=== PATIENT | female | born 1980 | race Caucasian/White ===

== ENCOUNTER 2018-02-07 08:15 | Outpatient (RCR) | payer OTHER, MEDICAID, SELFPAY ==
--- NOTE | 2018-01-16 09:00 | PT.OIE ---
Current Diagnoses Other specified joint disorders, left knee (01/15/18) Provider Visit Care Team Role Provider Type Elver Kwong PA-C Primary Care Provider Advanced Ornament Setter Specialty: Medical Address: [address] [place] [address], [id number] Email: [email or web address] [email or web address] Merino MD Attending Provider Physician Specialty: Orthopedic Surgery Address: [address] [place] [address], [id number] Email: [email or web address] Physical Therapy Initial Evaluation PT-OP-A Visit Information Start: 01/15/18 14:26 Freq: Status: Active Protocol: Document 01/15/18 14:27 EA (Rec: 01/15/18 14:28 EA [id number]) Out-Patient Physical Therapy Visit Information Visit Information Visit Type Initial Evaluation Visit Start Time 08:15 Visit Stop Time 09:00 Total Visit Minutes 45 Visit Number 1 Evaluation Information Evaluation Date 01/15/18 PT-OP-B Current Condition Start: 01/15/18 14:26 Freq: Status: Active Protocol: Document 01/15/18 17:00 EA (Rec: 01/16/18 07:35 EA [id number]) Current Condition History of Current Condition Onset Date 2007 Current Complaints Right shoulder weakness and pain, left knee pain History of Current Condition Patient have active complaints : 1. 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 Pt not identified for any imaging performed in the past years. 2. L localized knee pain: Pt reports history of left MCL in high school and recovered; states 6-7 years ago knee pain re-appears again. Pt reports her physician did not believed the recent result on knee MRI which negative for meniscus injury. Prior Treatments and Tests Cortisone shot to shoulder. Future Testing and Treatments Planned None at this time. Treatment Goals Patient/Caregiver Goals Patient want to reduce or eliminate pain to right shoulder and knee so she could perform work tasks without limitation . Prior Functional Status Baseline Function- ADL's Independent Baseline Function- Mobility Independent Current Functional Impairments (Reported) Functional Limitations- ADL's Indep with mininmal limitation on overhead movement Functional Limitations- Mobility/Gait Indep with difficulty on all high impact mobility. Functional Limitations- Work/School Currently laid off Functional Limitations- Recreation/ Unable to perform high impact Hobbies activities due to knee limitation Personal Factors Other Personal Factors That May Effect Chronicity of the condition. Therapy/Recovery PT-OP-C Subjective Start: 01/15/18 14:26 Freq: Status: Active Protocol: Document 01/15/18 17:10 EA (Rec: 01/16/18 08:38 EA [id number]) OP-PT Subjective Patient Comments Patient Comments Pt c/o diffuse right shoulder pain rated 4/10 and left knee localized pain rated 6/10. Patient Reported Progress Same Patient Questionnaires Lower Extremity Functional Scale LEFS Score 57 LEFS Impairment 20 to 39% Impaired (Score 48- 62) Quick Dash- Upper Extremity Quick Dash UE Score 23 Quick Dash UE Impairment 20 to 39% Impaired (Score 20- 39) PT-OP-E Functional Tests Start: 01/15/18 14:26 Freq: Status: Active Protocol: Document 01/15/18 17:10 EA (Rec: 01/16/18 08:38 EA [id number]) Functional Tests Apley's Scratch Test Action 1: The subject is instructed to touch the opposite shoulder with his/her hand. This motion checks Glenohumeral adduction, internal rotation , horizontal adduction and scapular protraction Action 2: The subject is instructed to place his/her arm overhead and reach behind the neck to touch his/her upper back. This motion checks Glenohumeral abduction, external rotation and scapular upward rotation and elevation. Action 3: The subject puts his/her hand on the lower back and reaches upward as far as possible. This motion checks glenohumeral adduction, internal rotation and scapular retraction with downward rotation Action 3- Left T8 Action 3- Right T4 Squat Test Comments Single leg squat: Unable to left LE due to instability and weakness/pain PT-OP-G Mobility & Gait Start: 01/15/18 14:26 Freq: Status: Active Protocol: Document 01/15/18 17:10 EA (Rec: 01/16/18 08:38 EA [id number]) OP Mobility Evaluation Functional Movements Lifting and Carrying Limited left shoulder function lifting and carrying Squats Indep with no difficulty Running Assessment Unable at this time. PT-OP-J Posture/Palpation/Skin Start: 01/15/18 14:26 Freq: Status: Active Protocol: Document 01/15/18 17:10 EA (Rec: 01/16/18 08:38 EA [id number]) Posture Evaluation Position Standing Shoulder Posture Neutral Hip Posture (L) Neutral Patellar Posture (L) Laterally Tilted Foot Arch (L) Medium Arch (R) Medium Arch Palpation Assessment Location Two Palpation Location Left medial knee side, Left patella Palpation Findings Tenderness Palpation Details Grade 2; provocation of suprascapular nerve. One Palpation Location Right shoulder: postero lateral, scapular border Palpation Findings Soft Tissue Tightness Tenderness Trigger Point Palpation Details Grade 2 PT-OP-K Range of Motion Start: 01/15/18 14:26 Freq: Status: Active Protocol: Document 01/15/18 17:10 EA (Rec: 01/16/18 08:38 EA [id number]) Shoulder Goniometric Range of Motion Shoulder Measured in Degrees Right Shoulder ROM WFL Yes Knee Goniometric Range of Motion Knee Measured in Degrees Left Knee ROM WFL Yes PT-OP-L Special Tests Start: 01/15/18 14:26 Freq: Status: Active Protocol: Document 01/15/18 17:26 EA (Rec: 01/15/18 17:38 EA [id number]) Special Tests Shoulder Special Tests Speed's Biceps Test Results Negative Valerio Pratik Impingement Test Results negative Empty Can Test Results Neg Belly Press Test Results Neg Knee Special Tests Sal's Test Results - Valgus- 0 Degrees Test Results + Pascual's Sign Test Results + Valgus- 25 Degrees Test Results + Arnoldo Test Test Results Positive Apley's Compression Test Results Positive Comments Medial meniscus Patellar Grind Test Test Results Positive Other Special Tests Special Tests Positive with suprascapular nerve provocation test PT-OP-M Strength Start: 01/15/18 14:26 Freq: Status: Active Protocol: Document 01/15/18 17:26 EA (Rec: 01/15/18 17:38 EA [id number]) Shoulder Strength Shoulder Manual Muscle Testing Right Flexion 4- Good- Extension 4 Good Abduction (C5) 4- Good- Adduction 5 Normal External Rotation 4- Good- Internal Rotation 4 Good Horizontal Abduction 4- Good- Horizontal Adduction 4 Good Elbow/Forearm Strength Elbow and Forearm Manual Muscle Testing Right Flexion (C6) 5 Normal Extension (C7) 5 Normal Pronation 5 Normal Supination 5 Normal Knee Strength Knee Manual Muscle Testing Left Flexion (S2) 4+ Good+ Extension (L3) 4+ Good+ PT-OP-Q Treatments Start: 01/15/18 14:26 Freq: Status: Active Protocol: Document 01/15/18 17:26 EA (Rec: 01/15/18 17:38 EA [id number]) Self-Care/Home Management Treatment Education Patient Education Home Exercise Program Joint Protection Pain Management Posture PT-OP-T Assessment and Plan Start: 01/15/18 14:26 Freq: Status: Active Protocol: Document 01/15/18 17:26 EA (Rec: 01/15/18 17:38 EA [id number]) Physical Therapy Assessment Rehab Potential Rehabilitation Potential Good Evaluation Complexity Number of Personal Factors/Comorbidities 1-2 Number of Body Systems Impaired 3 Clinical Presentation at Evaluation Evolving Impairments Impairments Pain Strength Goals Three Impairment Right shoulder ABD/Flexion/ER decreased MM strength. Performing Artist Goal (LTG) Patient will exhibit right shoulder MMT score of at least 4+/5 to ABD/Flexion/ER LTG Duration 4/5 Two Impairment LEFS impairment score of 57/80 Correction Goal (LTG) Patient will have LEFS impaiment score of 70/80 LTG Duration 4 wks One Impairment Quick Dash impairment score of 24 Performing Artist Goal (LTG) Patient will have Quick Dash impairment score of 10 LTG Duration 4 wks Assessment Summary Assessment Patient is a 37 y/o F who demonstrates difficulty with right shoulder overhead movement and left knee instability due to pain and weakness. Right shoulder special tests reveals negative with rotator cuff injury/ condition, however provocation with suprascapular nerve reveals positive with instability of scapula. Weakness is evident with shoulder ER/ABD and some FWD flexion. Left knee special tests reveals sensitive with Medial collateral ligament, medial meniscus, and patello femoral joint OA/condition. Due to above physiological impairment, patient unable to perform tasks appropriate for her age. Patient will benefit with skilled PT to address the aforementioned deficits and likely will reach functional goals prior to discharge. Physical Therapy Plan Frequency and Duration Frequency of Treatment 2x/Week Plan of Care Start Date 01/15/18 Plan of Care End Date 03/12/18 Therapeutic Interventions Therapeutic Interventions Home Exercise Program Joint Mobilizations Manual Therapy Patient/Caregiver Education Self-Care/Home Management Soft Tissue Mobilization Taping Therapeutic Exercises Modalities Cold Pack/Ice Massage Electric Stimulation Hot Packs Ultrasound Next Visit Focus/Plan Next Note Type Treatment Note Next Visit Plan provide HEP
--- NOTE | 2018-01-17 09:39 | PT.OTN ---
Current Diagnoses Other specified joint disorders, left knee (01/17/18) Physical Therapy Treatment Note PT-OP-A Visit Information Start: 01/15/18 14:26 Freq: Status: Active Protocol: Document 01/17/18 08:20 EA (Rec: 01/17/18 09:01 EA [id number]) Out-Patient Physical Therapy Visit Information Visit Information Visit Type Treatment Note Visit Start Time 08:15 Visit Stop Time 09:00 Total Visit Minutes 55 Visit Number 2 PT-OP-B Current Condition Start: 01/15/18 14:26 Freq: Status: Active Protocol: Document 01/15/18 17:00 EA (Rec: 01/16/18 07:35 EA [id number]) Current Condition History of Current Condition Onset Date 2007 Current Complaints Right shoulder weakness and pain, left knee pain History of Current Condition Patient have active complaints : 1. 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 Pt not identified for any imaging performed in the past years. 2. L localized knee pain: Pt reports history of left MCL in highschool and recovered; states 6-7 years ago knee pain re-appears again. Pt reports her physician did not believed the recent result on knee MRI which negative for meniscus injury. Prior Treatments and Tests Cortisone shot to shoulder. Future Testing and Treatments Planned None at this time. Treatment Goals Patient/Caregiver Goals Patient want to reduce or elimant pain to right shoulder and knee so she could perform work tasks without limitation . Prior Functional Status Baseline Function- ADL's Independent Baseline Function- Mobility Independent Current Functional Impairments (Reported) Functional Limitations- ADL's Indep with mininmal limitation on overehad movement Functional Limitations- Mobility/Gait Indep with difficulty on all high impact mobility. Functional Limitations- Work/School Currently laid off Functional Limitations- Recreation/ Unable to perform high impact Hobbies activities due to knee limitation Personal Factors Other Personal Factors That May Effect Chronicity of the condition. Therapy/Recovery PT-OP-C Subjective Start: 01/15/18 14:26 Freq: Status: Active Protocol: Document 01/17/18 08:20 EA (Rec: 01/17/18 09:01 EA [id number]) OP-PT Subjective Patient Comments Patient Comments Pt reports went for 3 miles run and legs are both sores today; denies left knee aggravation Patient Reported Progress Improving PT-OP-E Functional Tests Start: 01/15/18 14:26 Freq: Status: Active Protocol: Document 01/15/18 17:10 EA (Rec: 01/16/18 08:38 EA [id number]) Functional Tests Apley's Scratch Test Action 1: The subject is instructed to touch the opposite shoulder with his/her hand. This motion checks Glenohumeral adduction, internal rotation , horizontal adduction and scapular protraction Action 2: The subject is instructed to place his/her arm overhead and reach behind the neck to touch his/her upper back. This motion checks Glenohumeral abduction, external rotation and scapular upward rotation and elevation. Action 3: The subject puts his/her hand on the lower back and reaches upward as far as possible. This motion checks glenohumeral adduction, internal rotation and scapular retraction with downward rotation Action 3- Left T8 Action 3- Right T4 Squat Test Comments Single leg squat: Unable to left LE due to instability and weakness/pain PT-OP-G Mobility & Gait Start: 01/15/18 14:26 Freq: Status: Active Protocol: Document 01/15/18 17:10 EA (Rec: 01/16/18 08:38 EA [id number]) OP Mobility Evaluation Functional Movements Lifting and Carrying Limited left shoulder function lifting and carrying Squats Indep with no difficulty Running Assessment Unable at this time. PT-OP-J Posture/Palpation/Skin Start: 01/15/18 14:26 Freq: Status: Active Protocol: Document 01/15/18 17:10 EA (Rec: 01/16/18 08:38 EA [id number]) Posture Evaluation Position Standing Shoulder Posture Neutral Hip Posture (L) Neutral Patellar Posture (L) Laterally Tilted Foot Arch (L) Medium Arch (R) Medium Arch Palpation Assessment Location Two Palpation Location Left medial knee side, Left patella Palpation Findings Tenderness Palpation Details Grade 2; provocation of suprascapular nerve. One Palpation Location Right shoulder: postero lateral, scapular border Palpation Findings Soft Tissue Tightness Tenderness Trigger Point Palpation Details Grade 2 PT-OP-K Range of Motion Start: 08/07/18 14:26 Freq: Status: Active Protocol: Document 01/15/18 17:10 EA (Rec: 01/16/18 08:38 EA [id number]) Shoulder Goniometric Range of Motion Shoulder Measured in Degrees Right Shoulder ROM WFL Yes Knee Goniometric Range of Motion Knee Measured in Degrees Left Knee ROM WFL Yes PT-OP-L Special Tests Start: 01/15/18 14:26 Freq: Status: Active Protocol: Document 01/15/18 17:26 EA (Rec: 01/15/18 17:38 EA [id number]) Special Tests Shoulder Special Tests Speed's Biceps Test Results Negative Valerio Pratik Impingement Test Results negative Empty Can Test Results Neg Belly Press Test Results Neg Knee Special Tests Sal's Test Results - Valgus- 0 Degrees Test Results + Pascual's Sign Test Results + Valgus- 25 Degrees Test Results + Arnoldo Test Test Results Positive Apley's Compression Test Results Positive Comments Medial meniscus Patellar Grind Test Test Results Positive Other Special Tests Special Tests Positive with suprascapular nerve provocation test PT-OP-M Strength Start: 01/15/18 14:26 Freq: Status: Active Protocol: Document 01/15/18 17:26 EA (Rec: 01/15/18 17:38 EA [id number]) Shoulder Strength Shoulder Manual Muscle Testing Right Flexion 4- Good- Extension 4 Good Abduction (C5) 4- Good- Adduction 5 Normal External Rotation 4- Good- Internal Rotation 4 Good Horizontal Abduction 4- Good- Horizontal Adduction 4 Good Elbow/Forearm Strength Elbow and Forearm Manual Muscle Testing Right Flexion (C6) 5 Normal Extension (C7) 5 Normal Pronation 5 Normal Supination 5 Normal Knee Strength Knee Manual Muscle Testing Left Flexion (S2) 4+ Good+ Extension (L3) 4+ Good+ PT-OP-Q Treatments Start: 01/15/18 14:26 Freq: Status: Active Protocol: Document 01/17/18 08:20 EA (Rec: 01/17/18 09:01 EA [id number]) Cardio Equipment Bicycle (Upright) Duration (Minutes) 5 Resistance 4 Seat Position 4 Gym Equipment Cable Column (Body Solid) Leg Extension Resistance 20# Reps/Time 15 x 2sets Rows Resistance 20-30 Reps/Time x15 reps x 2 Therapeutic Exercises Standing Exercises 1 Standing Exercise Name Wall squat: shoulder- press, side raises, front raises Side bilateral Reps/Minutes x 15 reps Manual Therapy Treatment Soft Tissue Mobilization 1 Body Location rith scapular borders Mobilization Type Myofascial Release Sustained Pressure Trigger Point Release Intensity/Depth Moderate Body Position Prone PT-OP-R Modalities Start: 01/15/18 14:26 Freq: Status: Active Protocol: Document 01/17/18 08:20 EA (Rec: 01/17/18 09:01 EA [id number]) Electric Stimulation Electric Stimulation Interferential Current (IFC) Body Location right post shoulder and scapula Intensity 15 Combined With Heat/Cold Hot Pack PT-OP-T Assessment and Plan Start: 01/15/18 14:26 Freq: Status: Active Protocol: Document 01/17/18 08:20 EA (Rec: 01/17/18 09:01 EA [id number]) Physical Therapy Assessment Assessment Summary Assessment Tolerated treatment well: requires cues during shoulder exercises. Physical Therapy Plan Next Visit Focus/Plan Next Note Type Treatment Note Next Visit Plan Cont with current plan
--- NOTE | 2018-01-22 13:19 | PT.OTN ---
Current Diagnoses Other specified joint disorders, left knee (01/22/18) Physical Therapy Treatment Note PT-OP-A Visit Information Start: 01/15/18 14:26 Freq: Status: Active Protocol: Document 01/22/18 08:24 EA (Rec: 01/22/18 09:00 EA [id number]) Out-Patient Physical Therapy Visit Information Visit Information Visit Type Treatment Note Visit Start Time 08:15 Visit Stop Time 09:00 Total Visit Minutes 55 Visit Number 3 PT-OP-B Current Condition Start: 01/15/18 14:26 Freq: Status: Active Protocol: Document 01/15/18 17:00 EA (Rec: 01/16/18 07:35 EA [id number]) Current Condition History of Current Condition Onset Date 2007 Current Complaints Right shoulder weakness and pain, left knee pain History of Current Condition Patient have active complaints : 1. 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 Pt not identified for any imaging performed in the past years. 2. L localized knee pain: Pt reports history of left MCL in highschool and recovered; states 6-7 years ago knee pain re-appears again. Pt reports her physician did not believed the recent result on knee MRI which negative for meniscus injury. Prior Treatments and Tests Cortisone shot to shoulder. Future Testing and Treatments Planned None at this time. Treatment Goals Patient/Caregiver Goals Patient want to reduce or elimant pain to right shoulder and knee so she could perform work tasks without limitation . Prior Functional Status Baseline Function- ADL's Independent Baseline Function- Mobility Independent Current Functional Impairments (Reported) Functional Limitations- ADL's Indep with mininmal limitation on overehad movement Functional Limitations- Mobility/Gait Indep with difficulty on all high impact mobility. Functional Limitations- Work/School Currently laid off Functional Limitations- Recreation/ Unable to perform high impact Hobbies activities due to knee limitation Personal Factors Other Personal Factors That May Effect Chronicity of the condition. Therapy/Recovery PT-OP-C Subjective Start: 01/15/18 14:26 Freq: Status: Active Protocol: Document 01/22/18 08:24 EA (Rec: 01/22/18 09:00 EA [id number]) OP-PT Subjective Patient Comments Patient Comments Pt reports quite sore today after running 16 miles last week. reports no increased in knee symptom PT-OP-E Functional Tests Start: 01/15/18 14:26 Freq: Status: Active Protocol: Document 01/15/18 17:10 EA (Rec: 01/16/18 08:38 EA [id number]) Functional Tests Apley's Scratch Test Action 1: The subject is instructed to touch the opposite shoulder with his/her hand. This motion checks Glenohumeral adduction, internal rotation , horizontal adduction and scapular protraction Action 2: The subject is instructed to place his/her arm overhead and reach behind the neck to touch his/her upper back. This motion checks Glenohumeral abduction, external rotation and scapular upward rotation and elevation. Action 3: The subject puts his/her hand on the lower back and reaches upward as far as possible. This motion checks glenohumeral adduction, internal rotation and scapular retraction with downward rotation Action 3- Left T8 Action 3- Right T4 Squat Test Comments Single leg squat: Unable to left LE due to instability and weakness/pain PT-OP-G Mobility & Gait Start: 01/15/18 14:26 Freq: Status: Active Protocol: Document 01/15/18 17:10 EA (Rec: 01/16/18 08:38 EA [id number]) OP Mobility Evaluation Functional Movements Lifting and Carrying Limited left shoulder function lifting and carrying Squats Indep with no difficulty Running Assessment Unable at this time. PT-OP-J Posture/Palpation/Skin Start: 01/15/18 14:26 Freq: Status: Active Protocol: Document 01/15/18 17:10 EA (Rec: 01/16/18 08:38 EA [id number]) Posture Evaluation Position Standing Shoulder Posture Neutral Hip Posture (L) Neutral Patellar Posture (L) Laterally Tilted Foot Arch (L) Medium Arch (R) Medium Arch Palpation Assessment Location Two Palpation Location Left medial knee side, Left patella Palpation Findings Tenderness Palpation Details Grade 2; provocation of suprascapular nerve. One Palpation Location Right shoulder: postero lateral, scapular border Palpation Findings Soft Tissue Tightness Tenderness Trigger Point Palpation Details Grade 2 PT-OP-K Range of Motion Start: 01/15/18 14:26 Freq: Status: Active Protocol: Document 01/15/18 17:10 EA (Rec: 01/16/18 08:38 EA [id number]) Shoulder Goniometric Range of Motion Shoulder Measured in Degrees Right Shoulder ROM WFL Yes Knee Goniometric Range of Motion Knee Measured in Degrees Left Knee ROM WFL Yes PT-OP-L Special Tests Start: 01/15/18 14:26 Freq: Status: Active Protocol: Document 01/15/18 17:26 EA (Rec: 01/15/18 17:38 EA [id number]) Special Tests Shoulder Special Tests Speed's Biceps Test Results Negative Valerio Pratik Impingement Test Results negative Empty Can Test Results Neg Belly Press Test Results Neg Knee Special Tests Sal's Test Results - Valgus- 0 Degrees Test Results + Pascual's Sign Test Results + Valgus- 25 Degrees Test Results + Arnoldo Test Test Results Positive Apley's Compression Test Results Positive Comments Medial meniscus Patellar Grind Test Test Results Positive Other Special Tests Special Tests Positive with suprascapular nerve provocation test PT-OP-M Strength Start: 01/15/18 14:26 Freq: Status: Active Protocol: Document 01/15/18 17:26 EA (Rec: 01/15/18 17:38 EA [id number]) Shoulder Strength Shoulder Manual Muscle Testing Right Flexion 4- Good- Extension 4 Good Abduction (C5) 4- Good- Adduction 5 Normal External Rotation 4- Good- Internal Rotation 4 Good Horizontal Abduction 4- Good- Horizontal Adduction 4 Good Elbow/Forearm Strength Elbow and Forearm Manual Muscle Testing Right Flexion (C6) 5 Normal Extension (C7) 5 Normal Pronation 5 Normal Supination 5 Normal Knee Strength Knee Manual Muscle Testing Left Flexion (S2) 4+ Good+ Extension (L3) 4+ Good+ PT-OP-Q Treatments Start: 01/15/18 14:26 Freq: Status: Active Protocol: Document 01/22/18 08:24 EA (Rec: 01/22/18 09:00 EA [id number]) Cardio Equipment Elliptical Duration (Minutes) 7 Resistance 4 Gym Equipment Shuttle Recovery Unilateral Squats Resistance 3 cords Shuttle Recovery Platform Stable Reps/Time 15 reps x 2 Therapeutic Exercises Standing Exercises 2 Standing Exercise Name Steady lunges: shoulder front raise, side raise, press Resistance 2-5 lbs Reps/Minutes x 8 reps each side of the leg 1 Standing Exercise Name Squat: shoulder- press, side raises, front raises Side bilateral Reps/Minutes x 15 reps PT-OP-R Modalities Start: 01/15/18 14:26 Freq: Status: Active Protocol: Document 01/22/18 08:24 EA (Rec: 01/22/18 09:00 EA [id number]) Electric Stimulation Electric Stimulation Interferential Current (IFC) Body Location right post shoulder and scapula Intensity 15 Combined With Heat/Cold Hot Pack Hot Pack/Cold Pack Treatment Cold Pack Location left knee Patient Position Prone PT-OP-T Assessment and Plan Start: 01/15/18 14:26 Freq: Status: Active Protocol: Document 01/22/18 08:24 EA (Rec: 01/22/18 09:00 EA [id number]) Physical Therapy Assessment Assessment Summary Assessment Tolerated treatment; patient requires cues during lunges. Physical Therapy Plan Next Visit Focus/Plan Next Note Type Treatment Note Next Visit Plan Cont with current plan
--- NOTE | 2018-01-24 09:47 | PT.OTN ---
Current Diagnoses Other specified joint disorders, left knee (01/24/18) Physical Therapy Treatment Note PT-OP-A Visit Information Start: 01/15/18 14:26 Freq: Status: Active Protocol: Document 01/24/18 07:35 EA (Rec: 01/24/18 08:20 EA [id number]) Out-Patient Physical Therapy Visit Information Visit Information Visit Type Treatment Note Visit Start Time 07:30 Visit Stop Time 08:15 Total Visit Minutes 55 Visit Number 4 PT-OP-B Current Condition Start: 01/15/18 14:26 Freq: Status: Active Protocol: Document 01/15/18 17:00 EA (Rec: 01/16/18 07:35 EA [id number]) Current Condition History of Current Condition Onset Date 2007 Current Complaints Right shoulder weakness and pain, left knee pain History of Current Condition Patient have active complaints : 1. 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 Pt not identified for any imaging performed in the past years. 2. L localized knee pain: Pt reports history of left MCL in highschool and recovered; states 6-7 years ago knee pain re-appears again. Pt reports her physician did not believed the recent result on knee MRI which negative for meniscus injury. Prior Treatments and Tests Cortisone shot to shoulder. Future Testing and Treatments Planned None at this time. Treatment Goals Patient/Caregiver Goals Patient want to reduce or elimant pain to right shoulder and knee so she could perform work tasks without limitation . Prior Functional Status Baseline Function- ADL's Independent Baseline Function- Mobility Independent Current Functional Impairments (Reported) Functional Limitations- ADL's Indep with mininmal limitation on overehad movement Functional Limitations- Mobility/Gait Indep with difficulty on all high impact mobility. Functional Limitations- Work/School Currently laid off Functional Limitations- Recreation/ Unable to perform high impact Hobbies activities due to knee limitation Personal Factors Other Personal Factors That May Effect Chronicity of the condition. Therapy/Recovery PT-OP-C Subjective Start: 01/15/18 14:26 Freq: Status: Active Protocol: Document 01/24/18 07:35 EA (Rec: 01/24/18 08:20 EA [id number]) OP-PT Subjective Patient Comments Patient Comments Pt reports a bit sore today but okay; states she uses cool spray to knee and shoulder and feels good. PT-OP-E Functional Tests Start: 01/15/18 14:26 Freq: Status: Active Protocol: Document 01/15/18 17:10 EA (Rec: 01/16/18 08:38 EA [id number]) Functional Tests Apley's Scratch Test Action 1: The subject is instructed to touch the opposite shoulder with his/her hand. This motion checks Glenohumeral adduction, internal rotation , horizontal adduction and scapular protraction Action 2: The subject is instructed to place his/her arm overhead and reach behind the neck to touch his/her upper back. This motion checks Glenohumeral abduction, external rotation and scapular upward rotation and elevation. Action 3: The subject puts his/her hand on the lower back and reaches upward as far as possible. This motion checks glenohumeral adduction, internal rotation and scapular retraction with downward rotation Action 3- Left T8 Action 3- Right T4 Squat Test Comments Single leg squat: Unable to left LE due to instability and weakness/pain PT-OP-G Mobility & Gait Start: 01/15/18 14:26 Freq: Status: Active Protocol: Document 01/15/18 17:10 EA (Rec: 01/16/18 08:38 EA [id number]) OP Mobility Evaluation Functional Movements Lifting and Carrying Limited left shoulder function lifting and carrying Squats Indep with no difficulty Running Assessment Unable at this time. PT-OP-J Posture/Palpation/Skin Start: 01/15/18 14:26 Freq: Status: Active Protocol: Document 01/15/18 17:10 EA (Rec: 01/16/18 08:38 EA [id number]) Posture Evaluation Position Standing Shoulder Posture Neutral Hip Posture (L) Neutral Patellar Posture (L) Laterally Tilted Foot Arch (L) Medium Arch (R) Medium Arch Palpation Assessment Location Two Palpation Location Left medial knee side, Left patella Palpation Findings Tenderness Palpation Details Grade 2; provocation of suprascapular nerve. One Palpation Location Right shoulder: postero lateral, scapular border Palpation Findings Soft Tissue Tightness Tenderness Trigger Point Palpation Details Grade 2 PT-OP-K Range of Motion Start: 08/07/18 14:26 Freq: Status: Active Protocol: Document 01/15/18 17:10 EA (Rec: 01/16/18 08:38 EA [id number]) Shoulder Goniometric Range of Motion Shoulder Measured in Degrees Right Shoulder ROM WFL Yes Knee Goniometric Range of Motion Knee Measured in Degrees Left Knee ROM WFL Yes PT-OP-L Special Tests Start: 01/15/18 14:26 Freq: Status: Active Protocol: Document 01/15/18 17:26 EA (Rec: 01/15/18 17:38 EA [id number]) Special Tests Shoulder Special Tests Speed's Biceps Test Results Negative Valerio Pratik Impingement Test Results negative Empty Can Test Results Neg Belly Press Test Results Neg Knee Special Tests Sal's Test Results - Valgus- 0 Degrees Test Results + Pascual's Sign Test Results + Valgus- 25 Degrees Test Results + Arnoldo Test Test Results Positive Apley's Compression Test Results Positive Comments Medial meniscus Patellar Grind Test Test Results Positive Other Special Tests Special Tests Positive with suprascapular nerve provocation test PT-OP-M Strength Start: 01/15/18 14:26 Freq: Status: Active Protocol: Document 01/15/18 17:26 EA (Rec: 01/15/18 17:38 EA [id number]) Shoulder Strength Shoulder Manual Muscle Testing Right Flexion 4- Good- Extension 4 Good Abduction (C5) 4- Good- Adduction 5 Normal External Rotation 4- Good- Internal Rotation 4 Good Horizontal Abduction 4- Good- Horizontal Adduction 4 Good Elbow/Forearm Strength Elbow and Forearm Manual Muscle Testing Right Flexion (C6) 5 Normal Extension (C7) 5 Normal Pronation 5 Normal Supination 5 Normal Knee Strength Knee Manual Muscle Testing Left Flexion (S2) 4+ Good+ Extension (L3) 4+ Good+ PT-OP-Q Treatments Start: 01/15/18 14:26 Freq: Status: Active Protocol: Document 01/24/18 07:35 EA (Rec: 01/24/18 08:20 EA [id number]) Cardio Equipment Elliptical Duration (Minutes) 7 Resistance 4-6 Gym Equipment Shuttle Recovery Unilateral Squats Resistance 3 cords Shuttle Recovery Platform Stable Reps/Time 15 reps x 2 Therapeutic Exercises Standing Exercises 3 Standing Exercise Name Cable sit to stand; lunges row Reps/Minutes x 15 reps x 2 sets 2 Standing Exercise Name walking lunges: shoulder front raise, side raise, press Resistance 2-5 lbs Reps/Minutes x 8 reps each side of the leg 1 Standing Exercise Name side stepSquat: shoulder- press, side raises, front raises Side bilateral Reps/Minutes x 15 reps Manual Therapy Treatment Soft Tissue Mobilization 1 Body Location rith scapular borders Mobilization Type Myofascial Release Sustained Pressure Trigger Point Release Intensity/Depth Moderate Body Position Prone PT-OP-R Modalities Start: 01/15/18 14:26 Freq: Status: Active Protocol: Document 01/24/18 07:35 EA (Rec: 01/24/18 08:20 EA [id number]) Electric Stimulation Electric Stimulation Interferential Current (IFC) Body Location right post shoulder and scapula Intensity 15 Combined With Heat/Cold Hot Pack PT-OP-T Assessment and Plan Start: 01/15/18 14:26 Freq: Status: Active Protocol: Document 01/24/18 07:35 EA (Rec: 01/24/18 08:20 EA [id number]) Physical Therapy Assessment Assessment Summary Assessment Patient is progressing very well. Physical Therapy Plan Next Visit Focus/Plan Next Visit Plan Advance as tolerated
--- NOTE | 2018-01-31 10:07 | PT.OTN ---
Current Diagnoses Other specified joint disorders, left knee (01/31/18) Physical Therapy Treatment Note PT-OP-A Visit Information Start: 01/15/18 14:26 Freq: Status: Active Protocol: Document 01/31/18 08:19 EA (Rec: 01/31/18 09:04 EA [id number]) Out-Patient Physical Therapy Visit Information Visit Information Visit Type Treatment Note Visit Start Time 08:15 Visit Stop Time 09:10 Total Visit Minutes 55 Visit Number 5 Evaluation Information Evaluation Date 01/15/18 PT-OP-B Current Condition Start: 01/15/18 14:26 Freq: Status: Active Protocol: Document 01/15/18 17:00 EA (Rec: 01/16/18 07:35 EA [id number]) Current Condition History of Current Condition Onset Date 2007 Current Complaints Right shoulder weakness and pain, left knee pain History of Current Condition Patient have active complaints : 1. 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 Pt not identified for any imaging performed in the past years. 2. L localized knee pain: Pt reports history of left MCL in highschool and recovered; states 6-7 years ago knee pain re-appears again. Pt reports her physician did not believed the recent result on knee MRI which negative for meniscus injury. Prior Treatments and Tests Cortisone shot to shoulder. Future Testing and Treatments Planned None at this time. Treatment Goals Patient/Caregiver Goals Patient want to reduce or elimant pain to right shoulder and knee so she could perform work tasks without limitation . Prior Functional Status Baseline Function- ADL's Independent Baseline Function- Mobility Independent Current Functional Impairments (Reported) Functional Limitations- ADL's Indep with mininmal limitation on overehad movement Functional Limitations- Mobility/Gait Indep with difficulty on all high impact mobility. Functional Limitations- Work/School Currently laid off Functional Limitations- Recreation/ Unable to perform high impact Hobbies activities due to knee limitation Personal Factors Other Personal Factors That May Effect Chronicity of the condition. Therapy/Recovery PT-OP-C Subjective Start: 01/15/18 14:26 Freq: Status: Active Protocol: Document 01/31/18 08:19 EA (Rec: 01/31/18 09:04 EA [id number]) OP-PT Subjective Patient Comments Patient Comments Pt reports unable to come last schedule due to headache; states knees and shoulder are much feeling better. Patient Reported Progress Improving Patient Questionnaires Lower Extremity Functional Scale LEFS Score 57 Quick Dash- Upper Extremity Quick Dash UE Score 23 PT-OP-E Functional Tests Start: 01/15/18 14:26 Freq: Status: Active Protocol: Document 01/15/18 17:10 EA (Rec: 01/16/18 08:38 EA [id number]) Functional Tests Apley's Scratch Test Action 1: The subject is instructed to touch the opposite shoulder with his/her hand. This motion checks Glenohumeral adduction, internal rotation , horizontal adduction and scapular protraction Action 2: The subject is instructed to place his/her arm overhead and reach behind the neck to touch his/her upper back. This motion checks Glenohumeral abduction, external rotation and scapular upward rotation and elevation. Action 3: The subject puts his/her hand on the lower back and reaches upward as far as possible. This motion checks glenohumeral adduction, internal rotation and scapular retraction with downward rotation Action 3- Left T8 Action 3- Right T4 Squat Test Comments Single leg squat: Unable to left LE due to instability and weakness/pain PT-OP-G Mobility & Gait Start: 01/15/18 14:26 Freq: Status: Active Protocol: Document 01/15/18 17:10 EA (Rec: 01/16/18 08:38 EA [id number]) OP Mobility Evaluation Functional Movements Lifting and Carrying Limited left shoulder function lifting and carrying Squats Indep with no difficulty Running Assessment Unable at this time. PT-OP-J Posture/Palpation/Skin Start: 01/15/18 14:26 Freq: Status: Active Protocol: Document 01/15/18 17:10 EA (Rec: 01/16/18 08:38 EA [id number]) Posture Evaluation Position Standing Shoulder Posture Neutral Hip Posture (L) Neutral Patellar Posture (L) Laterally Tilted Foot Arch (L) Medium Arch (R) Medium Arch Palpation Assessment Location Two Palpation Location Left medial knee side, Left patella Palpation Findings Tenderness Palpation Details Grade 2; provocation of suprascapular nerve. One Palpation Location Right shoulder: postero lateral, scapular border Palpation Findings Soft Tissue Tightness Tenderness Trigger Point Palpation Details Grade 2 PT-OP-K Range of Motion Start: 01/15/18 14:26 Freq: Status: Active Protocol: Document 01/15/18 17:10 EA (Rec: 01/16/18 08:38 EA [id number]) Shoulder Goniometric Range of Motion Shoulder Measured in Degrees Right Shoulder ROM WFL Yes Knee Goniometric Range of Motion Knee Measured in Degrees Left Knee ROM WFL Yes PT-OP-L Special Tests Start: 01/15/18 14:26 Freq: Status: Active Protocol: Document 01/15/18 17:26 EA (Rec: 01/15/18 17:38 EA [id number]) Special Tests Shoulder Special Tests Speed's Biceps Test Results Negative Valerio Pratik Impingement Test Results negative Empty Can Test Results Neg Belly Press Test Results Neg Knee Special Tests Sal's Test Results - Valgus- 0 Degrees Test Results + Pascual's Sign Test Results + Valgus- 25 Degrees Test Results + Arnoldo Test Test Results Positive Apley's Compression Test Results Positive Comments Medial meniscus Patellar Grind Test Test Results Positive Other Special Tests Special Tests Positive with suprascapular nerve provocation test PT-OP-M Strength Start: 01/15/18 14:26 Freq: Status: Active Protocol: Document 01/15/18 17:26 EA (Rec: 01/15/18 17:38 EA [id number]) Shoulder Strength Shoulder Manual Muscle Testing Right Flexion 4- Good- Extension 4 Good Abduction (C5) 4- Good- Adduction 5 Normal External Rotation 4- Good- Internal Rotation 4 Good Horizontal Abduction 4- Good- Horizontal Adduction 4 Good Elbow/Forearm Strength Elbow and Forearm Manual Muscle Testing Right Flexion (C6) 5 Normal Extension (C7) 5 Normal Pronation 5 Normal Supination 5 Normal Knee Strength Knee Manual Muscle Testing Left Flexion (S2) 4+ Good+ Extension (L3) 4+ Good+ PT-OP-Q Treatments Start: 01/15/18 14:26 Freq: Status: Active Protocol: Document 01/31/18 08:19 EA (Rec: 01/31/18 09:04 EA [id number]) Cardio Equipment Bicycle (Upright) Duration (Minutes) 5 Resistance 4 Seat Position 4 Treadmill Speed 3-7 Other interval x 5 Gym Equipment Cable Column (Body Solid) Leg Extension Resistance 20# Reps/Time 15 x 2sets Rows Resistance 20-30 Reps/Time x15 reps x 2 Shuttle Recovery Unilateral Squats Resistance 3 cords Shuttle Recovery Platform Stable Reps/Time 15 reps x 2 Therapeutic Exercises Standing Exercises 4 Standing Exercise Name BUSO DB side raise, front raise, shoulder press Side right Reps/Minutes 12 x 2sets 3 Standing Exercise Name Cable sit to stand; lunges row Reps/Minutes x 15 reps x 2 sets 2 Standing Exercise Name walking lunges: shoulder front raise, side raise, press Resistance 2-5 lbs Reps/Minutes x 8 reps each side of the leg 1 Standing Exercise Name side stepSquat: shoulder- press, side raises, front raises Side bilateral Reps/Minutes x 15 reps Manual Therapy Treatment Soft Tissue Mobilization 1 Body Location rith scapular borders Mobilization Type Myofascial Release Sustained Pressure Trigger Point Release Intensity/Depth Moderate Body Position Prone Self-Care/Home Management Treatment Education Patient Education Home Exercise Program Joint Protection Pain Management Posture PT-OP-R Modalities Start: 01/15/18 14:26 Freq: Status: Active Protocol: Document 01/31/18 08:19 EA (Rec: 01/31/18 09:04 EA [id number]) Electric Stimulation Electric Stimulation Interferential Current (IFC) Body Location right post shoulder and scapula Intensity 15 Combined With Heat/Cold Hot Pack Hot Pack/Cold Pack Treatment Cold Pack Location left knee Patient Position Prone PT-OP-T Assessment and Plan Start: 01/15/18 14:26 Freq: Status: Active Protocol: Document 01/31/18 08:19 EA (Rec: 01/31/18 09:04 EA [id number]) Physical Therapy Assessment Impairments Impairments Pain Strength Goals Three Impairment Right shoulder ABD/Flexion/ER decreased MM strength. Jail Goal (LTG) Patient will exhibit right shoulder MMT score of at least 4+/5 to ABD/Flexion/ER LTG Duration 4/5 Two Impairment LEFS impairment score of 57/80 Jail Goal (LTG) Patient will have LEFS impaiment score of 70/80 LTG Duration 4 wks One Impairment Quick Dash impairment score of 24 Director Of Dietary Goal (LTG) Patient will have Quick Dash impairment score of 10 LTG Duration 4 wks Assessment Summary Assessment Tolerated exercises well with no signs of discomfort during exercises Physical Therapy Plan Frequency and Duration Frequency of Treatment 2x/Week Plan of Care Start Date 01/15/18 Plan of Care End Date 03/12/18 Therapeutic Interventions Therapeutic Interventions Home Exercise Program Joint Mobilizations Manual Therapy Patient/Caregiver Education Self-Care/Home Management Soft Tissue Mobilization Taping Therapeutic Exercises Modalities Cold Pack/Ice Massage Electric Stimulation Hot Packs Ultrasound Next Visit Focus/Plan Next Visit Plan Advance as tolerated
--- NOTE | 2018-02-05 13:41 | PT.OTN ---
Current Diagnoses Other specified joint disorders, left knee (02/05/18) Physical Therapy Treatment Note PT-OP-A Visit Information Start: 01/15/18 14:26 Freq: Status: Active Protocol: Document 02/05/18 08:57 EA (Rec: 02/05/18 09:02 EA [id number]) Out-Patient Physical Therapy Visit Information Visit Information Visit Type Treatment Note Visit Start Time 08:15 Visit Stop Time 09:10 Total Visit Minutes 55 Visit Number 6 PT-OP-B Current Condition Start: 01/15/18 14:26 Freq: Status: Active Protocol: Document 01/15/18 17:00 EA (Rec: 01/16/18 07:35 EA [id number]) Current Condition History of Current Condition Onset Date 2007 Current Complaints Right shoulder weakness and pain, left knee pain History of Current Condition Patient have active complaints : 1. 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 Pt not identified for any imaging performed in the past years. 2. L localized knee pain: Pt reports history of left MCL in highschool and recovered; states 6-7 years ago knee pain re-appears again. Pt reports her physician did not believed the recent result on knee MRI which negative for meniscus injury. Prior Treatments and Tests Cortisone shot to shoulder. Future Testing and Treatments Planned None at this time. Treatment Goals Patient/Caregiver Goals Patient want to reduce or elimant pain to right shoulder and knee so she could perform work tasks without limitation . Prior Functional Status Baseline Function- ADL's Independent Baseline Function- Mobility Independent Current Functional Impairments (Reported) Functional Limitations- ADL's Indep with mininmal limitation on overehad movement Functional Limitations- Mobility/Gait Indep with difficulty on all high impact mobility. Functional Limitations- Work/School Currently laid off Functional Limitations- Recreation/ Unable to perform high impact Hobbies activities due to knee limitation Personal Factors Other Personal Factors That May Effect Chronicity of the condition. Therapy/Recovery PT-OP-C Subjective Start: 01/15/18 14:26 Freq: Status: Active Protocol: Document 02/05/18 08:57 EA (Rec: 02/05/18 09:02 EA [id number]) OP-PT Subjective Patient Comments Patient Comments Pt reports right shoulder and right knee is quite sore after 5 miles rung yesterday; denies shrp pain or tingling sensation. Patient Reported Progress Improving PT-OP-E Functional Tests Start: 01/15/18 14:26 Freq: Status: Active Protocol: Document 01/15/18 17:10 EA (Rec: 01/16/18 08:38 EA [id number]) Functional Tests Apley's Scratch Test Action 1: The subject is instructed to touch the opposite shoulder with his/her hand. This motion checks Glenohumeral adduction, internal rotation , horizontal adduction and scapular protraction Action 2: The subject is instructed to place his/her arm overhead and reach behind the neck to touch his/her upper back. This motion checks Glenohumeral abduction, external rotation and scapular upward rotation and elevation. Action 3: The subject puts his/her hand on the lower back and reaches upward as far as possible. This motion checks glenohumeral adduction, internal rotation and scapular retraction with downward rotation Action 3- Left T8 Action 3- Right T4 Squat Test Comments Single leg squat: Unable to left LE due to instability and weakness/pain PT-OP-G Mobility & Gait Start: 01/15/18 14:26 Freq: Status: Active Protocol: Document 01/15/18 17:10 EA (Rec: 01/16/18 08:38 EA [id number]) OP Mobility Evaluation Functional Movements Lifting and Carrying Limited left shoulder function lifting and carrying Squats Indep with no difficulty Running Assessment Unable at this time. PT-OP-J Posture/Palpation/Skin Start: 01/15/18 14:26 Freq: Status: Active Protocol: Document 01/15/18 17:10 EA (Rec: 01/16/18 08:38 EA [id number]) Posture Evaluation Position Standing Shoulder Posture Neutral Hip Posture (L) Neutral Patellar Posture (L) Laterally Tilted Foot Arch (L) Medium Arch (R) Medium Arch Palpation Assessment Location Two Palpation Location Left medial knee side, Left patella Palpation Findings Tenderness Palpation Details Grade 2; provocation of suprascapular nerve. One Palpation Location Right shoulder: postero lateral, scapular border Palpation Findings Soft Tissue Tightness Tenderness Trigger Point Palpation Details Grade 2 PT-OP-K Range of Motion Start: 01/15/18 14:26 Freq: Status: Active Protocol: Document 01/15/18 17:10 EA (Rec: 01/16/18 08:38 EA [id number]) Shoulder Goniometric Range of Motion Shoulder Measured in Degrees Right Shoulder ROM WFL Yes Knee Goniometric Range of Motion Knee Measured in Degrees Left Knee ROM WFL Yes PT-OP-L Special Tests Start: 01/15/18 14:26 Freq: Status: Active Protocol: Document 01/15/18 17:26 EA (Rec: 01/15/18 17:38 EA [id number]) Special Tests Shoulder Special Tests Speed's Biceps Test Results Negative Valerio Pratik Impingement Test Results negative Empty Can Test Results Neg Belly Press Test Results Neg Knee Special Tests Sal's Test Results - Valgus- 0 Degrees Test Results + Pascual's Sign Test Results + Valgus- 25 Degrees Test Results + Arnoldo Test Test Results Positive Apley's Compression Test Results Positive Comments Medial meniscus Patellar Grind Test Test Results Positive Other Special Tests Special Tests Positive with suprascapular nerve provocation test PT-OP-M Strength Start: 01/15/18 14:26 Freq: Status: Active Protocol: Document 01/15/18 17:26 EA (Rec: 01/15/18 17:38 EA [id number]) Shoulder Strength Shoulder Manual Muscle Testing Right Flexion 4- Good- Extension 4 Good Abduction (C5) 4- Good- Adduction 5 Normal External Rotation 4- Good- Internal Rotation 4 Good Horizontal Abduction 4- Good- Horizontal Adduction 4 Good Elbow/Forearm Strength Elbow and Forearm Manual Muscle Testing Right Flexion (C6) 5 Normal Extension (C7) 5 Normal Pronation 5 Normal Supination 5 Normal Knee Strength Knee Manual Muscle Testing Left Flexion (S2) 4+ Good+ Extension (L3) 4+ Good+ PT-OP-Q Treatments Start: 01/15/18 14:26 Freq: Status: Active Protocol: Document 02/05/18 08:57 EA (Rec: 02/05/18 09:02 EA [id number]) Cardio Equipment Recumbent Bicycle Duration (Minutes) 7 Resistance 3 Gym Equipment Cable Column (Body Solid) Leg Extension Resistance 20# Reps/Time 15 x 2sets Rows Resistance 20-30 Reps/Time x15 reps x 2 Shuttle Recovery Bilateral Squats Details 6 Shuttle Recovery Platform Stable Reps/Time x 12 reps x 2sets Unilateral Squats Resistance 4 cords Shuttle Recovery Platform Stable Reps/Time 15 reps x 2 Therapeutic Exercises Other Exercises 1 Other Exercise Name dikr squat shoulder press, side raises, and front raises Reps/Minutes x 12 reps x 2 sets Manual Therapy Treatment Soft Tissue Mobilization 1 Body Location right scapular borders Mobilization Type Myofascial Release Sustained Pressure Trigger Point Release Intensity/Depth Moderate Body Position Prone PT-OP-R Modalities Start: 01/15/18 14:26 Freq: Status: Active Protocol: Document 02/05/18 08:57 EA (Rec: 02/05/18 09:02 EA [id number]) Electric Stimulation Electric Stimulation Interferential Current (IFC) Body Location right post shoulder and scapula Intensity 15 Combined With Heat/Cold Hot Pack Hot Pack/Cold Pack Treatment Cold Pack Location left knee Patient Position Prone PT-OP-T Assessment and Plan Start: 01/15/18 14:26 Freq: Status: Active Protocol: Document 02/05/18 08:57 EA (Rec: 02/05/18 09:02 EA [id number]) Physical Therapy Assessment Assessment Summary Assessment Tolerated treatment well; no acute inflammation noted and good form during therapeutic exercises. Patient is progressing well. Physical Therapy Plan Next Visit Focus/Plan Next Visit Plan Advance as tolerated
--- NOTE | 2018-02-07 13:39 | PT.OTN ---
Current Diagnoses Other specified joint disorders, left knee (02/07/18) Physical Therapy Treatment Note PT-OP-A Visit Information Start: 01/15/18 14:26 Freq: Status: Active Protocol: Document 02/07/18 08:26 EA (Rec: 02/07/18 09:02 EA [id number]) Out-Patient Physical Therapy Visit Information Visit Information Visit Type Treatment Note Visit Start Time 08:15 Visit Stop Time 09:10 Total Visit Minutes 55 Visit Number 7 PT-OP-B Current Condition Start: 01/15/18 14:26 Freq: Status: Active Protocol: Document 01/15/18 17:00 EA (Rec: 01/16/18 07:35 EA [id number]) Current Condition History of Current Condition Onset Date 2007 Current Complaints Right shoulder weakness and pain, left knee pain History of Current Condition Patient have active complaints : 1. 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 Pt not identified for any imaging performed in the past years. 2. L localized knee pain: Pt reports history of left MCL in highschool and recovered; states 6-7 years ago knee pain re-appears again. Pt reports her physician did not believed the recent result on knee MRI which negative for meniscus injury. Prior Treatments and Tests Cortisone shot to shoulder. Future Testing and Treatments Planned None at this time. Treatment Goals Patient/Caregiver Goals Patient want to reduce or elimant pain to right shoulder and knee so she could perform work tasks without limitation . Prior Functional Status Baseline Function- ADL's Independent Baseline Function- Mobility Independent Current Functional Impairments (Reported) Functional Limitations- ADL's Indep with mininmal limitation on overehad movement Functional Limitations- Mobility/Gait Indep with difficulty on all high impact mobility. Functional Limitations- Work/School Currently laid off Functional Limitations- Recreation/ Unable to perform high impact Hobbies activities due to knee limitation Personal Factors Other Personal Factors That May Effect Chronicity of the condition. Therapy/Recovery PT-OP-C Subjective Start: 01/15/18 14:26 Freq: Status: Active Protocol: Document 02/07/18 08:26 EA (Rec: 02/07/18 09:02 EA [id number]) OP-PT Subjective Patient Comments Patient Comments Pt reports general body fatigue and sore for two days; denies any swelling to shoulder and knee. Patient express her opinion that she thinks she has a tear with left knee which was not indicated in the report of MRI . PT-OP-E Functional Tests Start: 01/15/18 14:26 Freq: Status: Active Protocol: Document 01/15/18 17:10 EA (Rec: 01/16/18 08:38 EA [id number]) Functional Tests Apley's Scratch Test Action 1: The subject is instructed to touch the opposite shoulder with his/her hand. This motion checks Glenohumeral adduction, internal rotation , horizontal adduction and scapular protraction Action 2: The subject is instructed to place his/her arm overhead and reach behind the neck to touch his/her upper back. This motion checks Glenohumeral abduction, external rotation and scapular upward rotation and elevation. Action 3: The subject puts his/her hand on the lower back and reaches upward as far as possible. This motion checks glenohumeral adduction, internal rotation and scapular retraction with downward rotation Action 3- Left T8 Action 3- Right T4 Squat Test Comments Single leg squat: Unable to left LE due to instability and weakness/pain PT-OP-G Mobility & Gait Start: 01/15/18 14:26 Freq: Status: Active Protocol: Document 01/15/18 17:10 EA (Rec: 01/16/18 08:38 EA [id number]) OP Mobility Evaluation Functional Movements Lifting and Carrying Limited left shoulder function lifting and carrying Squats Indep with no difficulty Running Assessment Unable at this time. PT-OP-J Posture/Palpation/Skin Start: 01/15/18 14:26 Freq: Status: Active Protocol: Document 01/15/18 17:10 EA (Rec: 01/16/18 08:38 EA [id number]) Posture Evaluation Position Standing Shoulder Posture Neutral Hip Posture (L) Neutral Patellar Posture (L) Laterally Tilted Foot Arch (L) Medium Arch (R) Medium Arch Palpation Assessment Location Two Palpation Location Left medial knee side, Left patella Palpation Findings Tenderness Palpation Details Grade 2; provocation of suprascapular nerve. One Palpation Location Right shoulder: postero lateral, scapular border Palpation Findings Soft Tissue Tightness Tenderness Trigger Point Palpation Details Grade 2 PT-OP-K Range of Motion Start: 01/15/18 14:26 Freq: Status: Active Protocol: Document 01/15/18 17:10 EA (Rec: 01/16/18 08:38 EA [id number]) Shoulder Goniometric Range of Motion Shoulder Measured in Degrees Right Shoulder ROM WFL Yes Knee Goniometric Range of Motion Knee Measured in Degrees Left Knee ROM WFL Yes PT-OP-L Special Tests Start: 01/15/18 14:26 Freq: Status: Active Protocol: Document 01/15/18 17:26 EA (Rec: 01/15/18 17:38 EA [id number]) Special Tests Shoulder Special Tests Speed's Biceps Test Results Negative Valerio Pratik Impingement Test Results negative Empty Can Test Results Neg Belly Press Test Results Neg Knee Special Tests Sal's Test Results - Valgus- 0 Degrees Test Results + Pascual's Sign Test Results + Valgus- 25 Degrees Test Results + Arnoldo Test Test Results Positive Apley's Compression Test Results Positive Comments Medial meniscus Patellar Grind Test Test Results Positive Other Special Tests Special Tests Positive with suprascapular nerve provocation test PT-OP-M Strength Start: 01/15/18 14:26 Freq: Status: Active Protocol: Document 01/15/18 17:26 EA (Rec: 01/15/18 17:38 EA [id number]) Shoulder Strength Shoulder Manual Muscle Testing Right Flexion 4- Good- Extension 4 Good Abduction (C5) 4- Good- Adduction 5 Normal External Rotation 4- Good- Internal Rotation 4 Good Horizontal Abduction 4- Good- Horizontal Adduction 4 Good Elbow/Forearm Strength Elbow and Forearm Manual Muscle Testing Right Flexion (C6) 5 Normal Extension (C7) 5 Normal Pronation 5 Normal Supination 5 Normal Knee Strength Knee Manual Muscle Testing Left Flexion (S2) 4+ Good+ Extension (L3) 4+ Good+ PT-OP-Q Treatments Start: 01/15/18 14:26 Freq: Status: Active Protocol: Document 02/07/18 08:26 EA (Rec: 02/07/18 09:02 EA [id number]) Cardio Equipment Recumbent Bicycle Duration (Minutes) 7 Resistance 3 Gym Equipment Cable Column (Body Solid) Leg Extension Details hold 2 sec at ext w/ ball inbet knees Resistance 20# Reps/Time 10 x 2sest Shuttle Recovery Bilateral Squats Details 6 Shuttle Recovery Platform Stable Reps/Time x 12 reps x 2sets Unilateral Squats Resistance 3 cords Shuttle Recovery Platform Stable Reps/Time 15 reps x 2 Therapeutic Exercises Standing Exercises 6 Standing Exercise Name Shoulder IR/ER Side right Resistance Lv 1 Reps/Minutes x 15 reps x 2 5 Standing Exercise Name shoulder ext Side bilateral Resistance TB Reps/Minutes x 10 reps x 2 Other Exercises 2 Other Exercise Name Wall shoulder flexion, press, Side raises Equipment Used DB Reps/Minutes x 15 reps x 2 sets 1 Other Exercise Name wall squat Reps/Minutes x 12 reps x 2 sets Manual Therapy Treatment Soft Tissue Mobilization 1 Body Location right scapular borders Mobilization Type Myofascial Release Sustained Pressure Trigger Point Release Intensity/Depth Moderate Body Position Prone PT-OP-R Modalities Start: 01/15/18 14:26 Freq: Status: Active Protocol: Document 02/07/18 08:26 EA (Rec: 02/07/18 09:02 EA [id number]) Electric Stimulation Electric Stimulation Interferential Current (IFC) Body Location right post shoulder and scapula Intensity 15 Combined With Heat/Cold Hot Pack PT-OP-T Assessment and Plan Start: 01/15/18 14:26 Freq: Status: Active Protocol: Document 02/07/18 08:26 EA (Rec: 02/07/18 09:02 EA [id number]) Physical Therapy Assessment Assessment Summary Assessment Quick assessment to knee reveals + Pascual's sign with no signs of acute inflammation. Tenderness to shoulder reveals decreased tenderness to scapular borders; therapeutic exercises showed no abnormal shoulder rhythm. Patient recommended to refrain from high impact exercises. Physical Therapy Plan Next Visit Focus/Plan Next Visit Plan Cont with current plan
--- NOTE | 2018-05-27 17:24 | PT.OPDS ---
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 Specialty: Medical Address: [address] [place] [address], [id number] Email: [email or web address] Umer Merino MD Attending Provider Physician Specialty: Orthopedic Surgery Address: [address] [place] [address], [address] Email: [email or web address] Visit Number Visit Number 7 Discharge Summary PT-OP-B Current Condition Start: 01/15/18 14:26 Freq: Status: Active Protocol: Document 01/15/18 17:00 EA (Rec: 01/16/18 07:35 EA [id number]) Current Condition History of Current Condition Onset Date 2007 Current Complaints Right shoulder weakness and pain, left knee pain History of Current Condition Patient have active complaints : 1. 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 Pt not identified for any imaging performed in the past years. 2. L localized knee pain: Pt reports history of left MCL in highschool and recovered; states 6-7 years ago knee pain re-appears again. Pt reports her physician did not believed the recent result on knee MRI which negative for meniscus injury. Prior Treatments and Tests Cortisone shot to shoulder. Future Testing and Treatments Planned None at this time. Treatment Goals Patient/Caregiver Goals Patient want to reduce or elimant pain to right shoulder and knee so she could perform work tasks without limitation . Prior Functional Status Baseline Function- ADL's Independent Baseline Function- Mobility Independent Current Functional Impairments (Reported) Functional Limitations- ADL's Indep with mininmal limitation on overehad movement Functional Limitations- Mobility/Gait Indep with difficulty on all high impact mobility. Functional Limitations- Work/School Currently laid off Functional Limitations- Recreation/ Unable to perform high impact Hobbies activities due to knee limitation Personal Factors Other Personal Factors That May Effect Chronicity of the condition. Therapy/Recovery PT-OP-C Subjective Start: 01/15/18 14:26 Freq: Status: Active Protocol: Document 05/27/18 17:22 EA (Rec: 05/27/18 17:24 EA [id number]) OP-PT Subjective Patient Comments Patient Comments Patient cancelled all scheduled appointments after last visit on 02/07/18. PT-OP-E Functional Tests Start: 01/15/18 14:26 Freq: Status: Active Protocol: Document 01/15/18 17:10 EA (Rec: 01/16/18 08:38 EA [id number]) Functional Tests Apley's Scratch Test Action 1: The subject is instructed to touch the opposite shoulder with his/her hand. This motion checks Glenohumeral adduction, internal rotation , horizontal adduction and scapular protraction Action 2: The subject is instructed to place his/her arm overhead and reach behind the neck to touch his/her upper back. This motion checks Glenohumeral abduction, external rotation and scapular upward rotation and elevation. Action 3: The subject puts his/her hand on the lower back and reaches upward as far as possible. This motion checks glenohumeral adduction, internal rotation and scapular retraction with downward rotation Action 3- Left T8 Action 3- Right T4 Squat Test Comments Single leg squat: Unable to left LE due to instability and weakness/pain PT-OP-G Mobility & Gait Start: 01/15/18 14:26 Freq: Status: Active Protocol: Document 01/15/18 17:10 EA (Rec: 01/16/18 08:38 EA [id number]) OP Mobility Evaluation Functional Movements Lifting and Carrying Limited left shoulder function lifting and carrying Squats Indep with no difficulty Running Assessment Unable at this time. PT-OP-J Posture/Palpation/Skin Start: 01/15/18 14:26 Freq: Status: Active Protocol: Document 01/15/18 17:10 EA (Rec: 01/16/18 08:38 EA [id number]) Posture Evaluation Position Standing Shoulder Posture Neutral Hip Posture (L) Neutral Patellar Posture (L) Laterally Tilted Foot Arch (L) Medium Arch (R) Medium Arch Palpation Assessment Location Two Palpation Location Left medial knee side, Left patella Palpation Findings Tenderness Palpation Details Grade 2; provocation of suprascapular nerve. One Palpation Location Right shoulder: postero lateral, scapular border Palpation Findings Soft Tissue Tightness Tenderness Trigger Point Palpation Details Grade 2 PT-OP-K Range of Motion Start: 01/15/18 14:26 Freq: Status: Active Protocol: Document 01/15/18 17:10 EA (Rec: 01/16/18 08:38 EA [id number]) Shoulder Goniometric Range of Motion Shoulder Measured in Degrees Right Shoulder ROM WFL Yes Knee Goniometric Range of Motion Knee Measured in Degrees Left Knee ROM WFL Yes PT-OP-L Special Tests Start: 01/15/18 14:26 Freq: Status: Active Protocol: Document 01/15/18 17:26 EA (Rec: 01/15/18 17:38 EA [id number]) Special Tests Shoulder Special Tests Speed's Biceps Test Results Negative Valerio Pratik Impingement Test Results negative Empty Can Test Results Neg Belly Press Test Results Neg Knee Special Tests Sal's Test Results - Valgus- 0 Degrees Test Results + Pascual's Sign Test Results + Valgus- 25 Degrees Test Results + Arnoldo Test Test Results Positive Apley's Compression Test Results Positive Comments Medial meniscus Patellar Grind Test Test Results Positive Other Special Tests Special Tests Positive with suprascapular nerve provocation test PT-OP-M Strength Start: 01/15/18 14:26 Freq: Status: Active Protocol: Document 01/15/18 17:26 EA (Rec: 01/15/18 17:38 EA [id number]) Shoulder Strength Shoulder Manual Muscle Testing Right Flexion 4- Good- Extension 4 Good Abduction (C5) 4- Good- Adduction 5 Normal External Rotation 4- Good- Internal Rotation 4 Good Horizontal Abduction 4- Good- Horizontal Adduction 4 Good Elbow/Forearm Strength Elbow and Forearm Manual Muscle Testing Right Flexion (C6) 5 Normal Extension (C7) 5 Normal Pronation 5 Normal Supination 5 Normal Knee Strength Knee Manual Muscle Testing Left Flexion (S2) 4+ Good+ Extension (L3) 4+ Good+ PT-OP-T Assessment and Plan Start: 01/15/18 14:26 Freq: Status: Active Protocol: Document 05/27/18 17:22 EA (Rec: 05/27/18 17:24 EA [id number]) Physical Therapy Assessment Assessment Summary Assessment Patient is discharge today after not cancelling all scheduled appointments. Physical Therapy Plan Discharge Physical Therapy Discharge Reasons No Longer Attending PT
== END 2018-06-13 14:02 ==
LOC: PHYS 08:15
PROVIDERS: PCP Physician Assistant; Visit Provider Orthopaedic Surgery
DX: M25.862 Other specified joint disorders, left knee (principal)
CPT/HCPCS: 97010; 97014; 97110; 97140; 97162; G0283

== ENCOUNTER → 2021-05-02 11:56 | Outpatient (CLI) | payer OTHER, MEDICAID, SELFPAY ==
--- NOTE | 2021-05-02 11:57 | DI.US.S_ITS ---
PROCEDURE: US PELVIC COMPLETE INDICATIONS: MENORRHAGIA TECHNIQUE: Real-time scanning was performed of the pelvic organs, with image documentation. Additional endovaginal scanning was necessary due to incomplete visualization of the adnexal and endometrial structures by transabdominal scanning. COMPARISON: [facility], US, PELVIC COMPLETE, 11/04/2014, 0:20. FINDINGS: Uterus: Uterus is anteverted and normal in size at 9.8 x 4.4 x 5.8 cm. The myometrium is heterogeneous. The endometrium measures 3.3 mm combined thickness. A round hypoechoic lesion is seen in the left posterior intramural region, measuring up to 9 mm, compatible with a fibroid. Hypoechoic lesions in the cervix, compatible with nabothian cyst. Ovaries: The right ovary measures 4.2 x 2.1 x 1.8 cm Hypoechoic lesion within the right ovary, measuring up to 1.7 cm, most consistent with a hemorrhagic cyst. The left ovary measures 2.5 x 0.9 x 1.4 cm. Other: No pathologic free abdominal or pelvic fluid. IMPRESSION: 1. Hypoechoic lesion in the right ovary as detailed above, most consistent with a hemorrhagic cyst. 2. Subcentimeter intramural fibroid in the posterior uterus. We strive to produce accurate, complete, and clear reports of imaging services. To assist us in improving patient care, this report was composed using standard report templates and voice recognition software. Therefore, it may contain abnormal punctuation, insertions and/or omissions. Occasional wrong-word or sound-alike substitutions may occur. Though we review the report and make efforts to correct it, we do recommend that the report be read carefully in proper context to recognize any text inaccuracies. Dictated by: Magnus Whatley M.D. on 05/02/2021 at 13:01 Approved by: Magnus Whatley M.D. on 05/02/2021 at 13:08
== END ==
PROVIDERS: PCP Family Medicine; Referring Provider Obstetrics & Gynecology; Visit Provider Obstetrics & Gynecology
DX: N92.0 Excessive and frequent menstruation with regular cycle (principal); D25.1 Intramural leiomyoma of uterus; N83.9 Noninflammatory disorder of ovary, fallopian tube and broad ligament, unspecified
CPT/HCPCS: 76830; 76856

== ENCOUNTER → 2021-08-03 10:36 | Outpatient (CLI) | payer OTHER, MEDICAID, SELFPAY ==
[2021-08-03 11:38] LABS: COVID19 -Nasal RAPID Negative (Negative)
== END ==
PROVIDERS: PCP Family Medicine; Visit Provider Obstetrics & Gynecology
DX: Z01.812 Encounter for preprocedural laboratory examination (principal); Z20.822 Contact with and (suspected) exposure to COVID-19
CPT/HCPCS: 87635

== ENCOUNTER 2021-08-04 10:33 | Day surgery (SDC) | payer OTHER, MEDICAID, SELFPAY ==
[2021-08-03 09:08] VITALS: BMI 22.1
--- NOTE | 2021-08-04 | PATH_ITS ---
[facility] Accession Number: [id number] . 01 Material submitted: . endometrium - ENDOMETRIAL . 02 Diagnosis: A. Endometrium, Biopsy: Late secretory phase endometrium with focal polypoid change and focal features of breakdown. Decidualized stroma suggestive of progesterone effect/therapy. No evidence of endometrioid intraepithelial neoplasia or malignancy. MRV 08/08/2021 1450 Local . 02 Electronically signed: . Waleska Singh MD, Pathologist NPI- [id number] . 01 Gross description: . ENDOMETRIAL: Received in formalin are minute fragments of mucoid and hemorrhagic material measuring 2.5 x 1.7 x 0.2 cm in aggregate. Submitted in toto in 1 cassette. /CPE 08/05/2021 1254 Local . 02 Pathologist provided ICD-10: N92.1, N94.6 . 02 CPT . 428842 Specimen Comment: A courtesy copy of this report has been sent to [phone] Performed at: 01 [facility] [address] [facility], [place], [place] [id number] MD Yadiel Jefferson MD Phone: [phone] Performed at: 02 [facility] [address] [place], [place] [id number] MD Emily Ibarra MD Phone: [phone]
[2021-08-04 10:59] VITALS: BMI 22.1
[2021-08-04 11:15] VITALS: BP 106/73; PULSE 8; RESP 16; TEMP 36.7; O2SAT 100
--- NOTE | 2021-08-04 11:33 | SUR.OPER ---
Lithotomy on padded OR bed, head on pillow, arms secured on padded arm boards at <90 degrees abduction. Legs secured in padded yellow fins stirrups.
--- NOTE | 2021-08-04 12:59 | PM.PREOP ---
Pre-operative Note COVID-19 COVID-19 status: Negative Result date/Date tested (Pos, Neg/Pending): 08/03/21 Criteria for continued procedure: Non-surgical alternatives not available or appropriate per current SOC Interval Note History & Physical reviewed/Exam performed by Physician: Yes Changes to H&P: No H&P completed within 30 days and has changed as indicated here:: 07/05/21
[2021-08-04 13:40] VITALS: BP 107/63; PULSE 62; RESP 14; TEMP 36.8; O2SAT 96
[2021-08-04 13:45] VITALS: BP 98/63; PULSE 61; RESP 12; O2SAT 97
[2021-08-04 13:50] VITALS: BP 106/53; PULSE 82; RESP 12; O2SAT 100
[2021-08-04 13:55] VITALS: BP 123/68; PULSE 78; RESP 14; O2SAT 97
[2021-08-04 13:56] VITALS: BP 109/72; PULSE 72; RESP 12; TEMP 36.8; O2SAT 99
--- NOTE | 2021-08-04 13:59 | P.OP_ITS ---
Operative Date/Time/Diagnoses Date of procedure: 08/04/21 Time of procedure: 13:59 Pre-op diagnosis: Menorrhagia Dysmenorrhea Post-op diagnosis: same Procedure & Clinicians Procedure: Procedures Operation Date: 08/04/21 11:45 Actual Procedure Side Surgeon madelyn Shrestha Hysteroscopy w/ Novasure Ablation Casandra Cortez MD Indications: Dysmenorrhea Menorrhagia Surgeon: Casandra Cotrez Anesthesia Type: General (LMA) Operative Notes Findings: 7 week size anteverted uterus Both fallopian tube ostia observed Slightly thickened endometrial lining Closure Type: not applicable Specimen(s): endometrial curettings Estimated blood loss (mL): 10 Blood products transfused: none Procedure in detail: The patient was taken to the operating room where she was placed in the dorsal supine position. After adequate LMA general anesthesia was achieved, she was placed in the dorsal lithotomy position, and prepped and draped in the usual sterile fashion. A time-out was performed. A bivalve speculum was placed into the vagina and the anterior lip of the cervix was grasped with a single-tooth tenaculum. The cervical os was sequentially dilated until the hysteroscope could pass easily into the endometrial cavity. Initial inspection with the hys teroscope revealed both fallopian tube ostia. The hysteroscope was removed. Sharp curettage was performed yielding a moderate amount of endometrial curettings. The uterine cavity length was measured using the sure sound. The length was 4.5 cm. This was set on the NovaSure catheter as well as the generator. The catheter passed easily into the endometrial cavity and was opened. The width of the cavity was 3.5 cm. This was also set on the generator. The cervix was capped, the cavity assessment was performed and passed. The cycle was initiated and lasted 1 minute and 23 seconds. The cervix was uncapped, the NovaSure catheter was closed and removed from the uterus. The single-tooth tenaculum was removed from the anterior lip of the cervix. The bivalve speculum was removed from the vagina. Sponge, lap, and instrument counts were correct x2. The patient tolerated the procedure well, and was taken to PACU in stable condition. Complications: none Post-operative Condition: stable Disposition: PACU Plan for aftercare: Home after recovery
== END 2021-08-04 14:13 | disposition home or self-care (01) ==
PROVIDERS: PCP Family Medicine; Referring Provider Obstetrics & Gynecology; Visit Provider Obstetrics & Gynecology
PROC: 0U5B8ZZ Destruction of Endometrium, Via Natural or Artificial Opening Endoscopic (ICD-10-PCS; CPT 58563; principal; 2021-08-04 11:45)
DX: N92.0 Excessive and frequent menstruation with regular cycle (principal); N94.6 Dysmenorrhea, unspecified
CPT/HCPCS: 58563; 81025; J1100; J1885; J2405; J2704; J3010

== ENCOUNTER 2021-08-04 16:13 | Emergency (ER) | payer OTHER, MEDICAID, SELFPAY | END 2021-08-04 17:12 | disposition left against medical advice (07) | PROVIDERS: Emergency Provider Emergency Medicine; PCP Family Medicine | DX: Z53.21 Procedure and treatment not carried out due to patient leaving prior to being seen by health care provider (principal) ==

== ENCOUNTER → 2022-03-02 08:17 | Outpatient (CLI) | payer OTHER, MEDICAID, SELFPAY | PROVIDERS: PCP Family Medicine; Visit Provider Nurse Practitioner Family | DX: J02.9 Acute pharyngitis, unspecified (principal) | CPT/HCPCS: 87070 ==